=== PATIENT | female | born 1970 ===

== ENCOUNTER → 2018-05-07 | Outpatient (CLI) | payer MEDICARE ==
[~2018-05-07] MED LIST: ALB18R IH; ALBU2.5V36 INH; ASPI-692 PO; CALC-32 PO; DICL-195 PO; DICY10CA11 PO; FLU60VIA41 IM; HYDR-627 PO; MONT10TA PO; NAPR500T31 PO; OMEG-11 PO; PNEI IM; PRAZ2CAP26 PO; RIZA10TA15 PO; RIZA10TA3 PO; SUMA50TA35 PO; SUMA6PEN SQ; TRAM-420 PO
[2018-05-07 11:33] LABS: PLATELET COUNT, AUTOMATED 291 K/uL (150-450)
== END ==
LOC: LAB 11:18
PROVIDERS: ATTEND Nurse Practitioner Family
DX: E55.9 Vitamin D deficiency, unspecified (principal); K92.1 Melena; R10.9 Unspecified abdominal pain; F41.9 Anxiety disorder, unspecified
CPT/HCPCS: 36415; 82040; 82247; 82306; 82310; 82374; 82435; 82565; 82947; 84075; 84132; 84155; 84295; 84443; 84450; 84460; 84520; 85025; 85651; 86140

== ENCOUNTER 2018-05-28 01:04 | Day surgery (SDC) | payer MEDICARE ==
[~2018-05-28] VITALS: Ht 167.6 cm; Wt 57.2 kg
[2018-05-28] MEDS ORDERED: LIDOCAINE MPF 1% 5 ML VIAL ONE (08:34)
[2018-05-28] MEDS ORDERED: PROPOFOL EMUL(*) 10MG/ML 20 ML 40 ML ONE (08:34)
[2018-05-28 08:38] VITALS: BP 119/81
[2018-05-28 09:08] VITALS: BP 124/72
[2018-05-28 09:15] VITALS: BP 124/72
--- NOTE | 2018-05-28 09:22 | Short(Outpt) Discharge Summary ---
Discharge Summary Reason for Hosp/Final Diag: (1) Diarrhea Hospital Course & Plan: 47 yo f presented for colonoscopy. she tolerated the procedure well and there were no complications. path pending. she will be discharged home when criteria met. Departure Discharge to: Home Discharge Instructions Home Meds Active Scripts Calcium Carbonate/Vitamin D3 (Calcium 600 + Vit D3 800 Tab) 600 Mg-800 Tablet, 1 TAB PO BID, #60 TAB 11 Refills Prov:ANA DENNISON APRN-C 05/07/18 Prazosin Hcl (PRAZOSIN HCL) 2 Mg Capsule, 1 CAP PO QHS, #30 CAPSULE 0 Refills Prov:ANA DENNISON APRN-C 05/07/18 Hydrocodone Bit/Acetaminophen (NORCO 10-325 TABLET) 1 Each Tablet, 0.5-1 EACH PO QID, #60 TAB 0 Refills Prov:ANA DENNISON APRN-C 05/07/18 Dicyclomine Hcl (DICYCLOMINE HCL) 10 Mg Capsule, 1 CAP PO QID PRN for abdominal pain, #120 CAPSULE 0 Refills Prov:ANA DENNISON APRN-C 05/07/18 Sumatriptan Succinate (SUMATRIPTAN SUCCINATE) 6 Mg/0.5 Ml Pen.injctr, 1 SYR SQ DAILY PRN for MIGRAINE, #2 SYR 2 Refills Prov:ANA DENNISON APRN-C 05/07/18 Rizatriptan Benzoate (RIZATRIPTAN) 10 Mg Tablet, 1 TAB PO DAILY PRN for MIGRAINE, #12 TAB 2 Refills Prov:ANA DENNISON APRN-C 05/07/18 Montelukast Sodium (SINGULAIR) 10 Mg Tablet, 1 TAB PO QDAY, #30 TAB 2 Refills Prov:ANA DENNISON APRN-C 05/07/18 Naproxen (NAPROXEN) 500 Mg Tablet, 1 TAB PO BID PRN for PAIN, #60 TAB 2 Refills Prov:ANA DENNISON APRN-C 05/07/18 Albuterol Sulfate (VENTOLIN HFA) 18 Gm Inh, 2 PUFF IH Q4H PRN for WHEEZING, #1 BOTTLE 1 Refill Prov:ANA DENNISON APRN APPLICATION DEVELOPMENT SPECIALIST-C 05/07/18 Reported Medications Aspirin/Acetaminophen/Caffeine (EXCEDRIN MIGRAINE CAPLET) Unknown Strength Tablet, PO 04/10/18 [place]-3 Fatty Acids/Fish Oil (FISH OIL 1,000 MG CAPSULE) Unknown Strength Capsule, PO, CAPSULE 04/10/18 Diet: Regular Activity: As Tolerated Special Instructions: no driving today we will call you in 10 days with biopsy results. YARELY PERDOMO May 28, 2018 09:22
[2018-05-28 09:45] VITALS: BP 143/91
[2018-05-28 09:56] VITALS: BP 128/75
[2018-05-28 09:58] VITALS: BP 126/85
--- NOTE | 2018-05-28 10:40 | NUR ---
0908- PT. RECEIVED FROM OR VIA STRETCHER WITH THE SIDERAILS UP. SBAR RECEIVED FROM CAILIN JC AND DR. GEORGE. PT. SLEEPING ON LEFT SIDE BUT RESPONDING APPROPRIATELY TO COMMANDS. 0920- TURNED PT. O2 DOWN TO 1 LPM. 0925- RETURNED PT TO ROOM AIR. 0930- ORANGE JUICE AND CHEESE AND CRACKERS GIVEN TO THE PT. 0945- MORE CHEESE AND CRACKERS GIVEN TO THE PT. 0948- PT. RIDE CALLED. 0956- PT. STATES THAT SHE IS READY TO GO HOME SO ORTHOSTATICS PREFORMED. 1015- IV TAKEN OUT AND PRESSURE DRESSING APPLIED. 1020- D/C INSTRUCITONS GONE OVER WITH PT. AND RIDE. 1025- I ESCORTED THE PT OUT TO THE [facility] ALONG WITH HER RIDE WITH NO PROBLEMS.
[2018-05-28] MEDS ORDERED: LIDOCAINE/SOD BICARB 8.4% SYR ID ONE (11:15)
[2018-05-28] MEDS ORDERED: NORMOSOL R SOLN(*) 1000 ML BAG 1,000 ML IV PRN (11:15)
== END 2018-05-28 10:25 | disposition home or self-care (01) ==
LOC: OR 01:04
PROVIDERS: ATTEND Surgery
DX: R10.84 Generalized abdominal pain (principal); R19.7 Diarrhea, unspecified
CPT/HCPCS: 00811; 45380; 88305; J2001; J2704

== ENCOUNTER → 2018-06-18 | Outpatient (CLI) | payer MEDICARE ==
[2018-06-18 09:20] LABS: INR 1.01
[2018-06-18 11:15] VITALS: BP 130/82
--- NOTE | 2018-06-18 13:11 | RADIOLOGY IMAGING REPORT ---
[place] [facility] [place] Carina Reese : 1970 MR: [id number] V: [id number] EXAM DATE: ORDERING PHYSICIAN: KATHLEEN DUNLAP TECHNOLOGIST: Location: [facility] - [place] Patient: Carina Reese : 1970 Visit/Account:[id number] Date of Sevice: 06/18/2018 Exam type: XR MYELOGRAM CERVICAL History: Bilateral upper extremity radiculopathy Comparison: None. Findings: Signed written informed consent was obtained from the patient prior to the procedure. The risks incl ude but are not limited to bleeding, infection, headache, dural leak and pain. All questions were an swered. A final timeout was performed prior to the procedure. The patient was placed prone on the fluoroscopy table and the lumbar spine was prepped and draped in sterile fashion. Initial image demonstrates a prominent scoliosis. The patient has a pain stimulato r device anterior in the right lower quadrant. Superficial and deep anesthesia was performed with 3 cc of lidocaine. Using fluoroscopic guidance, a 22-gauge spinal needle was inserted at the L4-L5 level from a paraspinous approach. CSF was documen annmarie. Subsequently, 10 cc of Isovue-300 M was injected intrathecally without complication. Patient was tilted head down for approximately 5 minutes and then sent to CT for a CT myelogram. Raul pite being placed in the head down position for 5 minutes, the contrast did not appear to run to the cervical spine. Total fluoroscopy time was 1.5 minutes. Total DAP was 317.05 microGy/m2. IMPRESSION: 1. Technically successful fluoroscopically guided myelogram. Report Dictated By: Trevon Leonard MD at 06/18/2018 12:53 PM Report E-Signed By: Trevon Leonard MD at 06/18/2018 1:07 PM WSN:[email or web address]
--- NOTE | 2018-06-18 14:02 | RADIOLOGY IMAGING REPORT ---
FACILITY: [facility] PATIENT NAME: Carina Reese : 1970 MR: [id number] V: [id number] EXAM DATE: ORDERING PHYSICIAN: KATHLEEN DUNLAP TECHNOLOGIST: Location: [facility] Patient: Carina Reese : 1970 Visit/Account:[id number] Date of Sevice: 06/18/2018 EXAMINATION: Cervical spine CT myelogram HISTORY: Neck pain. COMPARISON: None available. TECHNIQUE: Axial CT of the cervical spine after the administration of intrathecal contrast material. Sagittal a nd coronal reformats. One of the following dose optimization techniques was utilized in the performance of this exam: Autom ated exposure control; adjustment of the mA and/or kV according to the patient's size; or use of an i terative reconstruction technique. Specific details can be referenced in the facility's radiology C T exam operational policy. CONTRAST: See procedure note for contrast details. FINDINGS: Alignment: Reversal of the normal lordosis. 3 mm of anterior listhesis of C3 over C4 and C4 over C5. Cranio-cervical junction: Mild degenerative changes in the atlantodental joint. Normal alignment. Vertebral bodies: Degenerative endplate changes at C2-C3, C3-C4, C4-C5, and T1-T2 Posterior elements: Solid fusion from C5 through T1 with facet hypertrophy at additional levels. Ther e is also solid fusion of the right C4-C5 facet joint. Hardware: Bilateral lateral mass screws at C6 and T1 with interconnecting plates. No perihardware shabbir ency. Soft tissues: Negative. Visualized upper chest: Negative. Disc Spaces: C1-2: No significant stenosis. C2-3: Circumferential disc osteophyte complex and mild facet hypertrophy. Mild spinal canal and bilat eral neural foraminal stenosis. C3-4: Circumferential disc osteophyte complex and facet hypertrophy. Mild spinal canal stenosis. At l east moderate bilateral neural foraminal stenosis. C4-5: Circumferential disc osteophyte complex and facet hypertrophy. Mild spinal canal stenosis. Mode rate to severe bilateral neural foraminal stenosis. C5-6: Solid fusion. No significant stenosis. C6-7: Solid fusion. No significant stenosis. C7-T1: Solid fusion. No significant stenosis. T1-T2: Circumferential disc osteophyte complex and facet hypertrophy. No significant spinal canal jaycee nosis. Moderate to severe bilateral neural foraminal stenosis. The lumbar spine was also scanned because the contrast initially did not travel superiorly and there was concern for a myelographic block. A myelographic block in the lumbar spine was not seen. The thor acic spine was not evaluated. Convex leftward curvature in the lumbar spine with 9 mm of left lateral listhesis of L3 over L4, 5 mm of retrolisthesis of L1 over L2, and 3 mm of retrolisthesis of L2 over L3. Multiple Schmorl's nodes. Mild age-indeterminate vertebral body height loss at L1, L2, and L3. Multilevel degenerative disc disease and facet hypertrophy. Partially imaged spinal stimulator with 3 epidural leads and one intradural lead. One of the epidural leads is fractured. The intradural lead terminates in the right posterior cauda equina at T12. There is an additional abandoned intradural ca theter or lead extending from L3 through the included portion of the thoracic spine. 4 mm pulmonary n odule in the left lung base (series 12, image 48). IMPRESSION: 1. The lumbar spine was also scanned because the contrast initially did not travel superiorly and the re was concern for a myelographic block. A myelographic block in the lumbar spine was not seen. The t horacic spine was not evaluated. 2. Solid fusion from C5 through T1 with no evidence of hardware failure and adjacent segment disease above and below. 3. Partially imaged spinal stimulator with 3 epidural leads and one intradural lead. One of the epidu ral leads is fractured. The intradural lead terminates in the right posterior cauda equina at T12. Th ere is an additional abandoned intradural catheter or lead extending from L3 through the included por tion of th thoracic spine.4. Multilevel degenerative disc disease and facet hypertrophy in the lumba r spine with multiple alignment abnormalities. Mild age-indeterminate vertebral body height loss at L 1, L2, and L3. No visible fracture lines or edema to suggest acute fracture. 5. 4 mm pulmonary nodule in the left lung base (series 12, image 48). No further evaluation is requir ed. F[employer] FOLLOW-UP GUIDELINES FOR NEWLY DETECTED INCIDENTAL NODULES IN PERSONS 35 YEARS OF AGE OR OLDER. *These recommendations do NOT apply to lung cancer screening, patients with immunosuppression or alissa ents with a known primary malignancy. NODULE(S) IDENTIFIED ON INCOMPLETE CHEST If nodule size is < 6 mm: * No further investigation on the basis of the estimated low risk of malignancy. If nodule size is 6-8 mm: * Follow-up CT of the complete chest after 3-12 months (depending on clinical risk), to confirm stab ility and to evaluate additional findings. If nodule size is > 8 mm or otherwise very suspicious: * Dedicated complete thoracic CT recommended. LOW RISK PATIENT: Minimal or absent history of tobacco use and of other known risk factors. HIGH RISK PATIENT: Tobacco use, family history of lung cancer, upper pulmonary lobe location of nodul e, presence of emphysema, pulmonary fibrosis, older age. Fariba H, Wesley DP, Varuno JM, et al. Guidelines for Management of Incidental Pulmonary Nodules Dete cted on CT Images: From the Fleischner Society 2017. Radiology. [facility] Report Dictated By: Jakob Liu MD at 06/18/2018 1:23 PM Report E-Signed By: Jakob Liu MD at 06/18/2018 1:56 PM WSN:[email or web address]
== END ==
LOC: CT 08:50
PROVIDERS: ATTEND Orthopaedic Surgery
DX: Z01.818 Encounter for other preprocedural examination (principal); M43.02 Spondylolysis, cervical region; M48.04 Spinal stenosis, thoracic region
CPT/HCPCS: 36415; 72126; 72240; 85049; 85610; 85730

== ENCOUNTER → 2018-06-27 | Outpatient (CLI) | payer MEDICARE | LOC: LAB 10:36 | PROVIDERS: ATTEND Surgery | DX: C44.519 Basal cell carcinoma of skin of other part of trunk (principal) | CPT/HCPCS: 88305 ==

== ENCOUNTER → 2018-07-18 | Outpatient (CLI) | payer MEDICARE ==
[~2018-07-18] MED LIST changes: +GABA-549 PO; +HYDR-4228 PO; +SERT-184 PO; +TERB250T74 PO
== END ==
LOC: LAB 13:44
PROVIDERS: ATTEND Surgery
DX: L90.5 Scar conditions and fibrosis of skin (principal)
CPT/HCPCS: 88305

== ENCOUNTER → 2018-07-23 | Outpatient (CLI) | payer MEDICARE | LOC: LAB 15:06 | PROVIDERS: ATTEND Nurse Practitioner Family | DX: Z79.899 Other long term (current) drug therapy (principal) | CPT/HCPCS: 80305 ==

== ENCOUNTER → 2018-07-29 | Outpatient (CLI) | payer MEDICARE | LOC: LAB 15:30 | PROVIDERS: ATTEND Nurse Practitioner Family | DX: Z11.59 Encounter for screening for other viral diseases (principal) | CPT/HCPCS: 36415; 86706; G0432; G0472; 86703; 86803 ==

== ENCOUNTER → 2018-09-02 | Outpatient (CLI) | payer MEDICARE ==
[~2018-09-02] MED LIST changes: +GABA-533 PO
== END ==
LOC: LAB 13:02
PROVIDERS: ATTEND Nurse Practitioner Family
DX: Z79.899 Other long term (current) drug therapy (principal)
CPT/HCPCS: 36415; 82040; 82247; 82310; 82374; 82435; 82565; 82947; 84075; 84132; 84155; 84295; 84450; 84460; 84520

== ENCOUNTER → 2018-09-23 | Outpatient (CLI) | payer MEDICARE ==
--- NOTE | 2018-09-23 13:27 | RADIOLOGY IMAGING REPORT ---
FACILITY: [facility] - [place] PATIENT NAME: Carina Reese : 1970 MR: [id number] V: [id number] EXAM DATE: ORDERING PHYSICIAN: ANA DENNISON TECHNOLOGIST: Location: [facility] Patient: Carina Reese : 1970 Visit/Account:[id number] Date of Sevice: 09/23/2018 GALLBLADDER HISTORY: abdominal pain and diarrhea COMPARISON: None. FINDINGS: Gallbladder: Unremarkable; no stones or sludge. Liver: Negative. Common duct: Slightly dilated 6.7 mm diameter. Pancreas: Partially obscured by bowel, visualized aspects unremarkable. Right kidney: Right kidney appears unremarkable measuring 8.9 cm in length Upper abdominal aorta and IVC: Patent. Ascites: None visualized. IMPRESSION: Common bile duct is mildly dilated at 6.7 mm. There is however no evidence of cholelithiasis, gallbl adder wall thickening or positive Sanford sign Report Dictated By: Shadia Andino MD at 09/23/2018 1:19 PM Report E-Signed By: Shadia Andino MD at 09/23/2018 1:21 PM WSN:[email or web address]
== END ==
LOC: US 08-21 00:41
PROVIDERS: ATTEND Nurse Practitioner Family
DX: R10.9 Unspecified abdominal pain (principal); R19.7 Diarrhea, unspecified
CPT/HCPCS: 76705